=== PATIENT | female | born 1985 | race Hispanic/Latino ===

== ENCOUNTER 2016-11-24 10:30 | Emergency (ER) | payer OTHER ==
[~2016-11-24] VITALS: Ht 165.1 cm; Wt 89.1 kg
[~2016-11-24 10:30] MED LIST: ACYCLOVIR800 MG PO; DIFLUCAN150 MG OR; DIFLUCAN150 MG PO; DONNATA2 PO; DOXYCYCLINE HY100 MG OR; FAMOTIDINE20 M3 PO; FLEXERIL OR; IBUPROFEN800 MG PO; LORTAB 5/3255 MG PO; LORTAB 7.57.5 MG PO; LORTAB5 PO; METRONIDAZOL500 MG PO; METRONIDAZOLE500 MG PO; MUCINEX DM1 TAB OR; NEXIUM40 M1 PO; NITROFURANTN100 M2 PO; NORETHIN ACE5 MG PO; OB COMPLET2 PO; PRENATAL MULTI +DHA OR; ZOFRAN ODT4 MG OR; [UNRECOGNIZED DRUG - CODE] OR
[2016-11-24 10:51] LABS: HEMATOCRIT 40.7 % (37.0-47.0); HEMOGLOBIN 13.2 g/dl (12.0-16.0); IMMATURE GRANULOCYTES 0.2 % (0.0-1.0); MEAN CELL VOLUME 82.4 fL CALC (80.0-100.0); MEAN CORPUSCULAR HGB 26.7 pG CALC (26.0-32.0); MEAN CORPUSCULAR HGB CONC 32.4 g/L CALC (32.0-36.0); NEUT# 3.54 thou/uL (2.00-7.15); RED BLOOD COUNT 4.94 mill/uL (4.20-5.60); RED CELL DISTRI WIDTH 13.4 % (11.5-15.5)
[2016-11-24 11:02] LABS: ALKALINE PHOSPHATASE 114 u/l (38-126); ANION GAP 19 (6-22 (CALC)); BILIRUBIN, TOTAL 0.4 mg/dL (0.0-1.4); BUN 15 mg/dL (7-17); BUN/CREATININE RATIO 22 (12-20 (CALC)); CALCIUM 9.3 mg/dL (8.4-10.2); CARBON DIOXIDE 26 mmol/l (22-30); CHLORIDE 103 mmol/l (95-108); CREATININE 0.7 mg/dL (0.5-1.0); GFR > 60 ML/MIN (>=60 (CALC)); GFR FOR AFR.AMER. > 60 ML/MIN (>=60 (CALC)); GLUCOSE 67 mg/dL (65-105); POTASSIUM 3.4 mmol/l (3.5-5.1); SGOT/AST 22 u/l (14-36); SGPT/ALT 20 u/l (9-52); SODIUM 145 mmol/l (137-146); TOTAL PROTEIN 9.2 g/dL (6.3-8.2)
[2016-11-24 11:14] LABS: MYOGLOBIN 22 ng/mL (0 - 62)
[2016-11-24] MEDS ORDERED: MEDDOSEPAK PO (12:06)
[2016-11-24] MEDS ORDERED: EPIPEN0.3 MG IM (12:06)
[2016-11-24] MEDS ORDERED: PEPCID20 MG PO (12:06)
[2016-11-24 13:18] VITALS: BP 113/77
== END 2016-11-24 13:18 | disposition home or self-care (01) | DRG 916 ==
LOC: ED 10:30
PROVIDERS: Emergency Medicine
DX: T78.3XXA Angioneurotic edema, initial encounter (principal); R06.02 Shortness of breath; T78.49XA Other allergy, initial encounter

== ENCOUNTER 2018-01-20 12:21 | Emergency (ER) | payer OTHER ==
[~2018-01-20] VITALS: Ht 165.1 cm; Wt 97.0 kg
[~2018-01-20 12:21] MED LIST changes: +EPIPEN0.3 MG IM; +MEDDOSEPAK PO; +PEPCID20 MG PO
[2018-01-20 12:50] LABS: URINE BILIRUBIN - DIPSTICK NEGATIVE (NEGATIVE); URINE BLOOD DIPSTICK LARGE (NEGATIVE); URINE CLARITY CLOUDY; URINE COLOR YELLOW; URINE GLUCOSE - DIPSTICK NEGATIVE (NEGATIVE); URINE KETONE NEGATIVE (NEGATIVE); URINE LEUK ESTERASE MODERATE (NEGATIVE); URINE NITRITE - DIPSTICK NEGATIVE (Negative); URINE PH 5.5 (4.5-8.0); URINE PROTEIN - DIPSTICK TRACE mg/dL (NEG-TRACE); URINE SPECIFIC GRAVITY <=1.005; URINE UROBILINOGEN - DIPSTICK 0.2 E.U./dL (0.2)
[2018-01-20 12:53] LABS: URINE BACTERIA FEW hpf; URINE RBC TNTC RBC/hpf (0-5); URINE SQUAMOUS EPITHELIAL CELL FEW EPI/hpf (0-FEW); URINE WBC 20-50 WBC/hpf (0-5)
[2018-01-20] MEDS ORDERED: PYRIDIUM200 MG PO (13:06)
[2018-01-20] MEDS ORDERED: BACTRIM DS1 TAB PO (13:06)
[2018-01-20 13:09] VITALS: BP 131/79
[2018-01-24] MEDS ORDERED: BACTRIM DS1 TAB PO (13:24)
== END 2018-01-20 13:09 | disposition home or self-care (01) | DRG 690 ==
LOC: ED 12:21
PROVIDERS: Emergency Medicine
DX: N39.0 Urinary tract infection, site not specified (principal)

== ENCOUNTER → 2018-11-22 | Outpatient (REF) | payer OTHER ==
[~2018-11-22] MED LIST changes: +BACTRIM DS1 TAB PO; +PYRIDIUM200 MG PO
[2018-11-22 08:32] LABS: URINE BILIRUBIN - DIPSTICK NEGATIVE (NEGATIVE); URINE BLOOD DIPSTICK MODERATE (NEGATIVE); URINE GLUCOSE - DIPSTICK 250 mg/dL (NEGATIVE); URINE KETONE TRACE mg/dL (NEGATIVE); URINE LEUK ESTERASE TRACE (Negative); URINE NITRITE - DIPSTICK POSITIVE (Negative); URINE PH 6.5 (4.5-8.0); URINE PROTEIN - DIPSTICK 100 mg/dL (NEG-TRACE); URINE UROBILINOGEN - DIPSTICK >=8.0 E.U./dL (0.2)
[2018-11-22 08:50] LABS: URINE CLARITY TURBID; URINE COLOR ORANGE; URINE RBC TNTC RBC/hpf (0-5)
[2018-11-22 08:51] LABS: URINE BACTERIA FEW hpf; URINE SQUAMOUS EPITHELIAL CELL FEW EPI/hpf (0-FEW)
== END | disposition home or self-care (01) | DRG 696 ==
LOC: LABSPEC 07:56
PROVIDERS: ATTEND Nurse Practitioner Family
DX: R30.0 Dysuria (principal)

== ENCOUNTER → 2018-12-03 | Outpatient (REF) ==
[2018-12-03 08:22] LABS: CHOLESTEROL HDL RATIO 3.1 (<4.4 (CALC))
== END | disposition home or self-care (01) | DRG 951 ==
LOC: LAB 06:46
PROVIDERS: ATTEND Family Medicine
DX: Z02.6 Encounter for examination for insurance purposes (principal)